=== PATIENT | female | born 1960 | race African-American/Black ===

== ENCOUNTER 2017-07-19 05:36 | Emergency (ER) | payer MEDICARE, MEDICAID ==
[~2017-07-19] VITALS: Ht 157.5 cm; Wt 66.0 kg
[2017-07-19] MEDS ORDERED: LORA10TA7 PO (06:13)
[2017-07-19] MEDS ORDERED: METF500T4 PO (06:13)
[2017-07-19] MEDS ORDERED: RISP2 PO (06:13)
[2017-07-19 07:39] LABS: BASOPHILS % 0.8 % (0.0-2.0); EOSINOPHILS % 7.9 % (0.0-5.0); HEMATOCRIT. 36.8 % (36.0-48.0); HEMOGLOBIN. 11.7 g/dL (12.0-16.0); LYMPHOCYTES % 26.8 % (20.0-50.0); MEAN CORPUSCULAR VOLUME 78.8 fL (81.0-99.0); MEAN PLATELET VOLUME 7.8 fl (7.4-10.4); MONOCYTES % 6.6 % (2.0-8.0); NEUTROPHILS % 57.9 % (40.0-76.0); PLATELET 345 x1000/uL (130-400); RED BLOOD CELL COUNT 4.67 mill/uL (4.2-5.4); RED CELL DISTRIBUTION WIDTH 16.4 % (11.6-14.6)
[2017-07-19 07:47] LABS: PROTHROMBIN TIME 10.4 sec (9.4-11.6)
[2017-07-19 07:51] LABS: CHLORIDE 106 mEq/L (98-107)
[2017-07-19 07:56] LABS: TROPONIN I < 0.02 ng/mL (0.00-0.04)
[2017-07-19 09:45] VITALS: BP 116/78
== END 2017-07-19 09:48 | disposition left against medical advice (07) ==
LOC: ER 08:12
DX: R07.89 Other chest pain (principal); M54.2 Cervicalgia; M25.512 Pain in left shoulder; E11.9 Type 2 diabetes mellitus without complications; F20.9 Schizophrenia, unspecified
CPT/HCPCS: 36415; 71045; 80053; 83880; 84484; 85025; 85610; 93005; 99285